=== PATIENT | male | born 1985 | race Caucasian/White ===

== ENCOUNTER 2021-03-18 20:07 | Emergency (ER) | payer BC ==
[~2021-03-18] VITALS: Ht 177.8 cm; Wt 97.5 kg
[2021-03-18 20:30] VITALS: BP_SYST 131
[2021-03-18] MEDS: IBUPROFEN 600 MG TABLET PO ONE (22:20)
[2021-03-18] MEDS: methocarbamoL 500 MG TABLET PO ONE (22:21)
[2021-03-18] MEDS ORDERED: IBUP-1969 PO (23:01)
[2021-03-18] MEDS ORDERED: META-23 PO (23:01)
[2021-03-18 23:15] VITALS: BP_SYST 128
== END 2021-03-18 23:15 | disposition home or self-care (01) ==
LOC: SED 20:07
DX: M54.5 Low back pain (principal)
CPT/HCPCS: 72131; 76376; 99284